=== PATIENT | female | born 1950 | race Two or more races ===

== ENCOUNTER 2024-11-10 14:58 | Emergency (ER) | payer MEDICARE, SELFPAY ==
[2024-11-10 15:00] VITALS: BMI 27.6
[2024-11-10 15:12] VITALS: BP 112/76; PULSE 81; RESP 18; TEMP 36.7; O2SAT 96
--- NOTE | 2024-11-10 15:24 | PD.EDUPEX ---
Upper Extremity Injury RME/HPI General Chief Complaint: Extremity Injury, Upper Stated Complaint: RT ARM PAIN [id number] Time Seen by Provider: 11/10/24 15:14 Source: patient Arrival date/time: 11/10/24 14:58 74-year-old female with no known medical history presents to the emergency room with a chief complaint of right shoulder pain x 1 month Mode of arrival: ambulatory Limitations: no limitations Related Data Previous Rx's ?Medication ?Instructions ?Recorded hydrocodone 5 mg-acetaminophen 325 1 tab PO BID PRN pain #6 tabs 11/10/24 mg tablet hydrocodone 5 mg-acetaminophen 325 1 tab PO BID PRN pain #6 tabs 11/10/24 mg tablet Allergies Allergy/AdvReac Type Severity Reaction Status Date / Time aspirin Allergy RASH Verified 11/10/24 15:00 Review of Systems Review of Systems Systems Reviewed: All systems reviewed, normal except as documented Constitutional Constitutional: Reports system reviewed and no additional complaints, except as documented, Denies fatigue, Denies fever(s), Denies headache(s) and Denies weakness Eyes Eyes: Reports system reviewed and no additional complaints, except as documented, Denies blurry vision and Denies change in vision ENT Ears, Nose, Mouth, and Throat: Reports system reviewed and no additional complaints, except as documented, Denies otalgia, Denies headache(s), Denies nasal congestion, Denies throat swelling and Denies vertigo Cardiovascular Cardiovascular: Reports system reviewed and no additional complaints, except as documented, Denies chest pain, Denies dyspnea and Denies dyspnea on exertion Respiratory Respiratory: Reports system reviewed and no additional complaints, except as documented, Denies chest congestion, Denies cough, Denies dyspnea, Denies dyspnea on exertion and Denies wheezing Gastrointestinal Gastrointestinal: Reports system reviewed and no additional complaints, except as documented, Denies abdominal pain, Denies cramping, Denies nausea and Denies vomiting Genitourinary Genitourinary: Reports system reviewed and no additional complaints, except as documented Musculoskeletal Musculoskeletal: Reports system reviewed and no additional complaints, except as documented, Reports arthralgias, Denies back pain, Reports joint swelling and Reports limited range of motion Integumentary/Breasts Skin/Breast: Reports system reviewed and no additional complaints, except as documented and Denies wounds Neurologic Neurologic: Reports system reviewed and no additional complaints, except as documented, Denies confusion, Denies headache(s), Denies lack of coordination, Denies vertigo and Denies weakness Psychiatric Psychiatric: Reports system reviewed and no additional complaints, except as documented, Denies anxiety, Denies confusion, Denies depression, Denies paranoia, Denies suicidal ideation and Denies tactile hallucinations Endocrine Endocrine: Reports system reviewed and no additional complaints, except as documented and Denies fatigue Hematologic/Lymphatic Hematologic/Lymphatic: Reports system reviewed and no additional complaints, except as documented and Denies lymphadenopathy Allergic/Immunologic Allergic/Immunologic: Reports system reviewed and no additional complaints, except as documented, Denies throat swelling, Denies urticaria and Denies wheezing Past Medical History Social History SMOKING STATUS: Never smoker ED Exam General Limitations: Present no limitations General appearance: Present alert and in no apparent distress Head Head exam: Present atraumatic Eye Eye exam: Present normal appearance, PERRL and EOMI ENT ENT exam: Present normal exam, normal oropharynx and mucous membranes moist Neck Neck exam: Present normal inspection, full ROM and trachea midline Chest Chest inspection: Present normal inspection and symmetric chest wall rise Respiratory Respiratory exam: Present normal lung sounds bilaterally Cardiovascular Cardiovascular exam: Present regular rate, normal rhythm and normal heart sounds Abdominal Exam Abdominal exam: Present soft and normal bowel sounds Extremities Exam Extremities exam: Present normal inspection and full ROM Expanded Upper Extremity Exam Shoulder exam: Present tenderness, swelling and tenderness over AC joint; Absent full ROM Back Exam Back exam: Present normal inspection and full ROM Neurological Exam Neurological exam: Present alert, oriented X3 and CN II-XII intact Psychiatric Psychiatric exam: Present normal affect and normal mood Skin Skin exam: Present warm, dry, intact and normal color Course Quality Measures none Orders Category Date Time Status Splint / Immobilizer STAT Care 11/10/24 15:22 Completed Ketorolac Inj [Toradol Inj] Med 11/10/24 15:22 Discontinued 30 mg IM X1 ONE Vital Signs Vital signs: Vital Signs Temperature 98.1 F 11/10/24 15:12 Pulse Rate 81 11/10/24 15:12 Respiratory Rate 18 11/10/24 15:12 Blood Pressure 112/76 11/10/24 15:12 Pulse Oximetry (%) 96 11/10/24 15:12 Oxygen Delivery Method Room Air 11/10/24 15:12 O2 saturation 96% within normal limits Extremity Injury MDM Narrative MDM Narrative:: 74-year-old female with no known medical history presents to the emergency room with a chief complaint of right shoulder pain x 1 month Patient is hemodynamically stable and in no apparent distress Physical examination shows a tender shoulder with tenderness to the AC joint with palpation. The patient has a very limited range of motion. Patient states she has been seen in an emergency room and x-rays were negative for any fracture or dislocation Patient states she was told she has an injury to her ligaments and has a scheduled MRI. Pain medication was given to the patient Patient was discharged and educated to follow-up with primary care provider in the next 24 to 48 hours and return to the emergency room for any evidence of worsening signs or symptoms Patient data External records reviewed:: [facility] previous records Clinical information provided by:: patient Social determinants that could affect healthcare access:: none Patient has the following chronic illnesses:: No chronic illness How is presenting disease/condition affected by chronic disease/condition?: no chronic disease Evaluation data The following diagnostics were reviewed and interpreted by me:: lab results and radiology exam(s) Lab and/or radiology exams considered but not ordered:: Labs and radiology exams considered and ordered Interpretation Summary: N/A Medications / Prescriptions Medications or Prescriptions considered but not ordered:: Medication given Medication administrations:: Medication Administration History Discontinued Medications Ketorolac Tromethamine (Ketorolac Inj 60 Mg/2 Ml Vial) 30 mg IM X1 ONE Stop: 11/10/24 15:23 Last Admin: 11/10/24 15:31 Dose: 30 mg Documented By: EF Medication given Consultations Consultation(s) initiated? (list below): No Diagnosis Upper Extremity Injury Differential Diagnosis: dislocation of shoulder and other (Right shoulder sprain) Most likely diagnosis given after review of the tests above:: Right shoulder sprain Admission Indicated Admission indicated?: not indicated Admission Request Was there a request for admission?: No Disposition Plan Disposition Plan: Discharge Discharge Attestation Discharge Attestation: The patient and all family members were given an opportunity to ask questions and understood the discharge instructions. Discharge instructions specifically effects, indications for sooner follow up or return to the emergency department, and the expected course of current diagnosis. Patient condition: Stable Discharge Plan Plan Patient Disposition: HOME (Self Care) Discharge Disposition comment: Stable Prescriptions/Referrals Prescriptions/Med Rec: New hydrocodone-acetaminophen 5-325 mg tablet 1 tab PO BID MDD 10mg PRN (Reason: pain) Qty: 6 0RF hydrocodone-acetaminophen 5-325 mg tablet 1 tab PO BID MDD 10mg PRN (Reason: pain) Qty: 6 0RF Problem List Clinical Impression: Shoulder sprain Patient/Caregiver Discharge Instructions Education Materials: ED Shoulder Sprain, ED Muscle Strain, Extremity Additional Instructions: Please follow-up with your primary care provider in the next 24 to 48 hours You will need to have your outpatient MRI completed to assess where your shoulder damage is located Pain medication was sent to your pharmacy For any evidence of worsening signs or symptoms return to the emergency room immediately Print Language: Tamazight Stand Alone Forms: Annetta Award Info., Patient Portal Info Letter PA/CORPORATE TRAVEL COUNSELOR Supervising Physician PA/CORPORATE TRAVEL COUNSELOR Supervising Physician: Dr. Aragon
[2024-11-10] MEDS: KETOROLAC INJ 60 MG/2 ML VIAL 30 MG IM (15:31)
== END 2024-11-10 15:56 | disposition home or self-care (01) ==
PROVIDERS: Emergency Provider Family Medicine
DX: S43.401A Unspecified sprain of right shoulder joint, initial encounter (principal); X58.XXXA Exposure to other specified factors, initial encounter
CPT/HCPCS: 96372; 99283; J1885

== ENCOUNTER → 2025-01-07 | Outpatient (CLI) | payer MEDICARE, SELFPAY ==
--- NOTE | 2025-01-07 13:30 | XR_ITS ---
MRI shoulder, right, without contrast. Date and time: January 07, 2025 1504 hours INDICATIONS: Right shoulder pain beginning 4 months ago Technique: Multiple axial, sagittal and coronal sections of the shoulder have been obtained. Siemens high-resolution 1.5 Nadiya MRI scanner is utilized. Axial fat-suppressed sections, TR 2350, TE 18 T2-weighted coronal fat-saturated images, TR 3500, TE 7100 T1-weighted coronal images, TR 500, TE 15 T2-weighted sagittal fat-saturated images, TR 3500, TE 57 T1-weighted sagittal sections, TR 504, TE 13. Findings: Supraspinatus tendon insertion is intact. Infraspinatus tendon insertion is intact. Subscapularis insertion is intact. Subscapularis bursa is not seen. Long head of the biceps is in the bicipital groove. No definite tear of the biceps superior labral anchor is seen. Retraction of the musculotendinous junction of the rotator cuff is not seen . Tendinosis pattern is moderate. Distance between the acromium and humeral head is 7.5 mm Atrophy of the supraspinatus muscle is severe. Atrophy of the infraspinatus muscle is moderate. Sagittal sections demonstrate a horizontal acromion. Acromioclavicular joint demonstrates moderate osteoarthritis. Osacromiale is not identified. Labral margins intact. Bony glenoid fossa on the sagittal sections does not demonstrate osseous defect. Occult fracture or area of avascular necrosis is not seen. Acromioclavicular joint separation is not visible. Defect in the posterolateral margin of the humeral head is not seen Impression: Rotator cuff and labral margins intact
== END | disposition home or self-care (01) ==
PROVIDERS: PCP Family Medicine; Referring Provider Family Medicine; Visit Provider Family Medicine
DX: M25.511 Pain in right shoulder (principal)
CPT/HCPCS: 73221

== ENCOUNTER 2025-03-10 02:43 | Emergency (ER) | payer MEDICARE, MEDICAID, SELFPAY ==
[2025-03-10 02:45] VITALS: BMI 28.8
--- NOTE | 2025-03-10 02:56 | EDNOTE_ITS ---
Upper Extremity Injury RME/HPI General Chief Complaint: Extremity Problem,Nontraumatic Stated Complaint: UPPER EXTRIMITY PAIN Time Seen by Provider: 03/10/25 02:57 Arrival date/time: 03/10/25 02:43 RME / HPI RME / HPI narrative: See [facility] for Dr. Curran's HPI Documentation. Related Data Previous Rx's ?Medication ?Instructions ?Recorded hydrocodone 5 mg-acetaminophen 325 1 tab PO BID PRN pa in #6 tabs 11/10/24 mg tablet hydrocodone 5 mg-acetaminophen 325 1 tab PO BID PRN pa in #6 tabs 11/10/24 mg tablet acetaminophen 300 mg-codeine 30 mg 2 tab PO Q8H PRN pa in #20 tabs 03/10/25 tablet lidocaine 5 % topical patch 2 patch topical QDAY PRN p ain #30 03/10/25 (Lidoderm) ea Allergies Allergy/AdvReac Type Severity Reaction Status Date / Time aspirin Allergy RASH Verified 11/10/24 15:00 Review of Systems Review of Systems Systems Reviewed: All systems reviewed, normal except as documented Past Medical History Social History SMOKING STATUS: Never smoker ED Exam Narrative Physical exam: See [facility] for Dr. Curran's Physical Exam Documentation. Course Quality Measures none Orders Category Date Time Status EKG (ED ONLY) *Do not use* NOW Care 03/10/25 03:00 Completed Miscellaneous Nursing Order NOW Care 03/10/25 05:12 Completed Miscellaneous Nursing Order NOW Care 03/10/25 05:39 Completed Saline [Insert IV] NOW Care 03/10/25 02:58 Completed Straight [In and Out Catheter] X1 Care 03/10/25 02:[address] cervical spine wo con Stat Exams 03/10/25 03:47 Completed EKG (ED Only) Stat Exams 03/10/25 03:00 Draft XR chest 1V portable Stat Exams 03/10/25 03:00 Completed XR shoulder BI min 2V Stat Exams 03/10/25 03:00 Completed XR wrist comp RT min 3V Stat Exams 03/10/25 03:00 Completed Bilirubin,Direct Stat Lab 03/10/25 03:11 Completed CBC Stat Lab 03/10/25 03:11 Completed CK [Creatine Kinase] Stat Lab 03/10/25 03:11 Completed CMP [Comprehensive Metabolic Panel] Stat Lab 03/10/25 03:11 Completed CRP [C-Reactive Protein] Stat Lab 03/10/25 03:11 Completed ESR [Sed Rate (ESR)] Stat Lab 03/10/25 03:11 Completed Magnesium Stat Lab 03/10/25 03:11 Completed Procalcitonin Stat Lab 03/10/25 03:11 Completed TSH [Thyroid Stimulating Hormone] Stat Lab 03/10/25 03:11 Completed Troponin I Stat Lab 03/10/25 03:11 Completed UA, C/S IF [Urinalysis, C/S if Indicated] Stat Lab 03/10/25 03:32 Completed Uric Acid Stat Lab 03/10/25 03:11 Completed Ketorolac Inj [Toradol Inj] Med 03/10/25 02:58 Discontinued 15 mg IVP X1 ONE Magnesium Sulfate 1 gm Ivpb [Magnesium Sulfate Ivpb] Med 03/10/25 04:33 Discontinued 1 gm in 100 ml IV X1 MethylPREDNISolone.* [SoluMEDROL Inj] Med 03/10/25 02:58 Discontinued 125 mg IVP X1 ONE Morphine* Inj Med 03/10/25 05:12 Discontinued 4 mg IV X1 ONE Ondansetron Inj [Zofran Inj] Med 03/10/25 02:58 Discontinued 4 mg IVP X1 ONE Sodium Chloride 0.9% 1000 ml [Ns] 1,000 ml Med 03/10/25 02:58 Discontinued IV 999 mls/hr Vital Signs Vital signs: Vital Signs Temperature 97.6 F 03/10/25 02:59 Pulse Rate 86 03/10/25 02:59 Respiratory Rate 18 03/10/25 02:59 Blood Pressure 131/82 H 03/10/25 02:59 Pulse Oximetry (%) 95 03/10/25 02:59 Oxygen Delivery Method Room Air 03/10/25 02:59 Extremity Injury MDM Narrative MDM Narrative:: This section includes all my notes and documentations, including HPI, PE, and ED course. Rod Curran MD HPI: 74 y/o female presents with BL shoulder pain x 6 months and right wrist pain and swelling x 3 weeks, worse few days ago. Also reports intermittent right finger numbness x 1 month. Denies injury. No chest pain. No other complaints. ROS: All negative except as documented in HPI. Physical Exam: General: Alert and oriented. In severe pain. Eyes: Conjunctivae and lids clear. EOMI. PERRL. ENT: No nasal congestion. Neck: Supple. No tenderness. Heart: RRR. Lungs: No respiratory distress. Good air movement. No rhonchi, wheezing, rales. Chest: No tenderness. Abdomen: Soft and nontender. Skin: Warm and dry. Neuro: Alert and oriented X 3. Cranial Nerves II-XII grossly intact. No peripheral motor deficits. Musculoskeletal: Remarkable for bilateral shoulder tenderness and right wrist tenderness. All other other major joints and bones are not tender with no limited ROM. I reviewed all diagnostic test results: My interpretation of the EKG is: Sinus rhythm (78 bpm) with nonspecific ST-T changes. My interpretation of the Chest x-ray is: NAD. My interpretation of the BL Shoulder x-ray is: No fracture. My interpretation of the Right Wrist x-ray is: No fracture. My review of the cervical spine CT report is no acute findings. Blood tests and urine tests remarkable for Mg 1.5. At this point, diagnoses include: Right Wrist Pain Bilateral shoulder pain (R > L) Hypomagnesemia Treatment here included: IV fluid Toradol 15 mg IV SoluMedrol 125 mg IV Zofran 4 mg IV Morphine 4 mg IV MgSO4 1 gram IV She felt much better. Recommended more outpatient workup. Based on my best medical judgment, made decision no further evaluation or treatment indicated at this time. Patient understands and agrees to the discharge instructions customized and printed, see below. Discharge Instructions from Dr. Curran printed for you: 1. Unfortunately, we did not find the cause of your shoulder pain and right wrist pain/swelling. 2. Until cleared by a doctor taking care of you, where the right wrist splint and arm sling. 3. Elevate your right wrist above your heart level is much as possible. Placing on your head is a good method. 4. Tylenol with codeine and lidocaine patches as needed for pain. 5. To find the cause/treatment of your pain, you need to see a private doctor outside the ER for further care and investigation not available here in the ER. Including MRI imaging studies, nerve conduction studies, specialized blood tests, and referrals to see specialists. See a private doctor this week. Ask to review all test results and official radiology reports, to make sure you receive all necessary follow-ups and monitoring. 6. Seek immediate medical care with intolerable pain, if you can't move your fingers, the fingers turn cold and blue, or with any concerns. Rod Curran MD Patient data External records reviewed:: [facility] previous records (Reviewed prior ED records from 11/10/24 . Patient was seen for Shoulder sprain.) Clinical information provided by:: patient Social determinants that could affect healthcare access:: none Patient has the following chronic illnesses:: None reported How is presenting disease/condition affected by chronic disease/condition?: no chronic disease Evaluation data The following diagnostics were reviewed and interpreted by me:: EKG tracing(s) (My interpretation of the EKG is: Sinus rhythm (78 bpm) with nonspecific ST-T changes. Rod Curran MD) Lab and/or radiology exams considered but not ordered:: None Interpretation Summary: I reviewed all diagnostic test results: My interpretation of the EKG is: Sinus rhythm (78 bpm) with nonspecific ST-T changes. My interpretation of the Chest x-ray is: NAD. My interpretation of the BL Shoulder x-ray is: No fracture. My interpretation of the Right Wrist x-ray is: No fracture. My review of the cervical spine CT report is no acute findings. Blood tests and urine tests remarkable for Mg 1.5. Medications / Prescriptions Medications or Prescriptions considered but not ordered:: None Medication administrations:: Medication Administration History Discontinued Medications Sodium Chloride (Ns) 1,000 mls @ 999 mls/hr IV .Q1H1M ONE Stop: 03/10/25 03:58 Last Infusion: 03/10/25 04:41 Dose: Infused Documented By: Admin: 03/10/25 03:34 Dose: 999 mls/hr Documented By: SANDRA Magnesium Sulfate/Dextrose (Magnesium Sulfate Ivpb) 1 gm in 100 mls @ 100 mls/h r IV X1 ONE Stop: 03/10/25 05:32 Last Infusion: 03/10/25 06:06 Dose: Infused Documented By: Admin: 03/10/25 05:06 Dose: 100 mls/hr Documented By: ABILIO Ketorolac Tromethamine (Ketorolac Inj 30 Mg/Ml Vial) 15 mg IVP X1 ONE Stop: 03/10/25 02:59 Last Admin: 03/10/25 03:34 Dose: 15 mg Documented By: SANDRA Methylprednisolone Sodium Succinate (Methylprednisolone Sod Succ 62.5 Mg/Ml 2ml Vial) 125 mg IVP X1 ONE Stop: 03/10/25 02:59 Last Admin: 03/10/25 03:34 Dose: 125 mg Documented By: SANDRA Morphine Sulfate (Morphine Sulf Inj 4 Mg/Ml Vial) 4 mg IV X1 ONE Stop: 03/10/25 05:13 Last Admin: 03/10/25 05:22 Dose: 4 mg Documented By: ABILIO Ondansetron HCl (Ondansetron Inj 2 Mg/Ml Inj 2 Ml) 4 mg IVP X1 ONE; Protocol Stop: 03/10/25 02:59 Last Admin: 03/10/25 03:34 Dose: 4 mg Documented By: SANDRA Treatment here included: IV fluid Toradol 15 mg IV SoluMedrol 125 mg IV Zofran 4 mg IV Morphine 4 mg IV MgSO4 1 gram IV Consultations Consultation(s) initiated? (list below): No Diagnosis Upper Extremity Injury Differential Diagnosis: sprain and strain of wrist, dislocation of shoulder, fracture of humerus and fracture of clavicle Most likely diagnosis given after review of the tests above:: At this point, diagnoses include: Right Wrist Pain Bilateral shoulder pain (R > L) Hypomagnesemia Admission Indicated Admission indicated?: not indicated Explain why admission is indicated or not indicated:: With significant improvement and no condition needing emergent intervention, there was no indication for admission. Admission Request Was there a request for admission?: No Disposition Plan Disposition Plan: Discharge Discharge Attestation Discharge Attestation: The patient and all family members were given an opportunity to ask questions and understood the discharge instructions. Discharge instructions specifically effects, indications for sooner follow up or return to the emergency department, and the expected course of current diagnosis. Patient condition: Stable Discharge Plan Plan Patient Disposition: HOME (Self Care) Prescriptions/Referrals Prescriptions/Med Rec: New acetaminophen-codeine 300-30 mg tablet 2 tab PO Q8H MDD 6 PRN (Reason: pain) Qty: 20 0RF lidocaine [Lidoderm] 5 % adhesive patch,medicated 2 patch topical QDAY PRN (Reason: pain) Qty: 30 0RF Rx Instructions: leave on most painful area for up to 12 hrs No Action hydrocodone-acetaminophen 5-325 mg tablet 1 tab PO BID MDD 10mg PRN (Reason: pain) Qty: 6 0RF hydrocodone-acetaminophen 5-325 mg tablet 1 tab PO BID MDD 10mg PRN (Reason: pain) Qty: 6 0RF Problem List Clinical Impression: Right wrist pain, Right shoulder pain Patient/Caregiver Discharge Instructions Discharge Activity: activity as tolerated Education Materials: ED Carpal Tunnel Syndrome, ED Shoulder Sprain Additional Instructions: Discharge Instructions from Dr. Curran printed for you: 1. Unfortunately, we did not find the cause of your shoulder pain and right wrist pain/swelling. 2. Until cleared by a doctor taking care of you, where the right wrist splint and arm sling. 3. Elevate your right wrist above your heart level is much as possible. Placing on your head is a good method. 4. Tylenol with codeine and lidocaine patches as needed for pain. 5. To find the cause/treatment of your pain, you need to see a private doctor outside the ER for further care and investigation not available here in the ER. Including MRI imaging studies, nerve conduction studies, specialized blood tests, and referrals to see specialists. See a private doctor this week. Ask to review all test results and official radiology reports, to make sure you receive all necessary follow-ups and monitoring. 6. Seek immediate medical care with intolerable pain, if you can't move your fingers, the fingers turn cold and blue, or with any concerns. Instrucciones de kathleen del Dr. Curran, impresas para usted: 1. Lamentablemente, no hemos encontrado la causa de lomeli dolor de hombro ni del dolor/hinchaz?n de la mu?eca derecha. 2. Hasta que el m?dico que lo atiende le d? el kathleen, donde se colocar? la f?catherine para la mu?eca derecha y el cabestrillo. 3. Eleve la mu?eca derecha por encima del nivel del coraz?n lo m?ximo posible. Colocarla sobre la crow es un buen m?todo. 4. Parches de Tylenol con code?na y lidoca?na seg?n sea necesario para el dolor. 5. Para determinar la causa/tratamiento de lomeli dolor, debe consultar a un m?dico privado fuera de urgencias para recibir atenci?n e investigaciones adicionales que no est?n disponibles aqu? en urgencias. Incluye estudios de resonancia magn?tip, estudios de conducci?n nerviosa, an?lisis de alley especializados y derivaciones a especialistas. Consulte a un m?dico privado esta semana. Solicite la revisi?n de todos los resultados de las pruebas y los informes radiol?gicos oficiales para asegurarse de recibir todos los seguimientos y la monitorizaci?n necesarios. 6. Busque atenci?n m?dica inmediata si tiene un dolor intolerable, no puede asbestos remover los dedos, estos se ponen fr?os y azules o si tiene alguna inquietud. Print Language: Greenlandic Stand Alone Forms: Annetta Award Info., Patient Portal Info Letter
[2025-03-10 02:59] VITALS: BP 131/82; PULSE 86; RESP 18; TEMP 36.4; O2SAT 95
--- NOTE | 2025-03-10 03:00 | EKG_ITS ---
[facility] Test Date: 2025-03-10 Pat Name: SUSANNE RODRÍGUEZTERODepartment: Room: - Gender: Female Clerk Supervisor: : [id number] Requested By: Rod Ferrari Order Number: [id number] Reading MD: Rod Ferrari Measurements Intervals [place] Rate: 78 P: 43 PA: 145 QRS: 15 QRSD: 89 T: 42 QT: 360 QTc: 412 Interpretive Statements SINUS RHYTHM LOW QRS VOLTAGE IN PRECORDIAL LEADS [QRS DEFLECTION < 1.0 mV IN CHEST LEADS] No previous ECG available for comparison /store/S0/[id number].pdf
--- NOTE | 2025-03-10 03:00 | XR_ITS ---
Examination: Wrist, right 3 views Technique: Wrist AP, oblique, lateral 3 views Date and time of exam: March 10, 2025, 1507 hours INDICATIONS: Wrist pain and numbness 3 weeks. FINDINGS: Moderate osteopenia. No fracture or dislocation. Mild osteoarthritis radiocarpal and first carpometacarpal joints IMPRESSION: Osteoarthritis as above
--- NOTE | 2025-03-10 03:00 | XR_ITS ---
EXAMINATION: PA chest single view TECHNIQUE: Upright PA chest single view Date and time: March 10, 2025, 0313 hours INDICATIONS: Shortness of breath today. FINDINGS: Normal heart size. Lungs are clear. The osseous structures are intact IMPRESSION: No active disease.
--- NOTE | 2025-03-10 03:00 | XR_ITS ---
EXAMINATION: Bilateral shoulders 6 views TECHNIQUE: AP internal rotation and AP external rotation and Y view right and left shoulders total 6 views March 10, 2025, 4 hours INDICATIONS: Bilateral shoulder pain beginning 3 weeks ago. FINDINGS: Bilateral moderate osteoarthritis glenohumeral joints Bilateral soft tissue shoulder calcific tendinitis No fractures or shoulder dislocations IMPRESSION: Bilateral moderate osteoarthritis glenohumeral joints Bilateral soft tissue shoulder calcific tendinitis
[2025-03-10 03:18] LABS: Basophils # (Auto) 0.1 Thou/mm3 (0.0-0.2); Basophils % (Auto) 1 % (0-2.5); Eosinophils # (Auto) 0.1 Thou/mm3 (0.0-0.5); Eosinophils % (Auto) 1 % (0-10); Hematocrit 40.7 % (36.0-46.0); Hemoglobin 13.7 g/dL (12.0-16.0); Immature Granulocytes Auto 0.03 Thou/mm3 (0.00-0.00); Lymphocytes # (Auto) 2.3 Thou/mm3 (1.0-4.8); Lymphocytes % (Auto) 31 % (10-50); Mean Corpuscular HGB Conc 33.7 g/dl (31.0-37.0); Mean Corpuscular Hemoglobin 30.0 pg (25.0-35.0); Mean Corpuscular Volume 89 fL (80-100); Monocytes # (Auto) 0.6 Thou/mm3 (0.0-0.8); Monocytes % (Auto) 8 % (0-12); Neutrophils # (Auto) 4.4 Thou/mm3 (1.8-7.7); Neutrophils % (Auto) 59 % (37-80); Nucleated Red Blood Cell # 0.00 Thou/mm3 (0.00-0.00); Nucleated Red Blood Cell % 0 /100 WBC (0); Platelet Count 217 Thou/mm3 (140-440); RDW Standard Deviation 44.4 fL (36.4-46.3); Red Blood Count 4.57 Miln/mm3 (4.00-5.20); White Blood Count 7.5 Thou/mm3 (3.6-11.0)
[2025-03-10] MEDS: ONDANSETRON INJ 2 MG/ML INJ 2 ML 4 MG IVP (03:34)
[2025-03-10] MEDS: SODIUM CHLORIDE 0.9% 1000 ML 1,000 ML 999 ML IV (03:34)
[2025-03-10] MEDS: KETOROLAC INJ 30 MG/ML VIAL 15 MG IVP (03:34)
[2025-03-10] MEDS: MethylPREDNISolone SOD SUCC 62.5 MG/ML 2ML VIAL 125 MG IVP (03:34)
[2025-03-10 03:39] LABS: Sed Rate (ESR) 26 mm/hr (0-30)
--- NOTE | 2025-03-10 03:47 | XR_ITS ---
Examination: CT cervical spine without contrast 2-D sagittal reconstructions 2-D coronal reconstructions 3-D reconstructions. Exam date and time: March 10, 2025, 0444 hours INDICATIONS: Neck pain radiating to the arms 3 weeks CTDI:vol (mGy) 15.5 DLP: (mGycm) 278 Technique: Multiple 2 mm axial sections of the cervical spine have been obtained. The coronal and sagittal reconstructions have been obtained. 3-D reconstructions have been obtained. Low dose protocols were performed. One or more of the following dose reduction techniques were used; automated exposure control, adjustment of the mA and/or KV according to patient size, use of iterative reconstruction technique. Findings: Axial sections demonstrate intact base of the skull. C1 exhibit satisfactory relationship to the odontoid. No acute cervical vertebral body fracture seen. Alignment posterior spinous processes satisfactory. Cervical fusion C5-C7 with anatomic alignment Impression: No acute cervical fracture. As clinically warranted, MRI cervical spine without contrast follow-up would best assess for soft tissue acquired spinal stenosis
[2025-03-10 04:22] LABS: Alanine Aminotransferase 18 U/L (10-49); Albumin, Serum 4.4 gm/dL (3.4-4.8); Albumin/Globulin Ratio 1.6 (1.2-2.2); Alkaline Phosphatase 85 U/L (46-116); Anion Gap 11 (7-16); Aspartate Amino Transferase 18 U/L (0-34); BUN/Creatinine Ratio 20 Ratio (12-20); Bilirubin,Direct 0.2 mg/dL (0.0-0.3); Bilirubin,Total 0.6 mg/dL (0.3-1.2); Blood Urea Nitrogen 18 mg/dL (9-23); C-Reactive Protein < 0.5 mg/dL (0.0-0.9); Calcium 9.7 mg/dL (8.3-10.6); Calcium (Corrected) 9.7 mg/dL (8.5-10.1); Carbon Dioxide 23.9 mMol/L (20.0-31.0); Chloride 108 mMol/L (98-107); Creatine Kinase 39 U/L (34-171); Creatinine (Component) 0.9 mg/dL (0.6-1.3); Estimated Creatinine Clearance 55.6 mL/min (>60); Globulin 2.8 gm/dL (2.3-3.5); Glucose 125 mg/dL (74-106); Magnesium 1.5 mg/dL (1.6-2.6); Osmolality,Calculated 287 (275-295); Potassium 3.5 mMol/L (3.4-5.1); Procalcitonin 0.09 ng/ml (0.0-0.49); Sodium 143 mMol/L (136-145); Thyroid Stimulating Hormone 4.81 uIU/mL (0.55-4.78); Total Protein 7.2 gm/dL (5.7-8.2); Troponin I < 0.002 ng/mL (0.0-0.045); Uric Acid 2.8 mg/dL (3.1-7.8); eGFR > 60 See Note
[2025-03-10 04:47] LABS: Collection Type, Urine Clean Catch
[2025-03-10 05:00] LABS: Bacteria,Urine Rare; Bilirubin,Urine Negative (Negative); Blood,Urine Negative (Negative); Clarity,Urine Clear (Clear/Hazy); Color,Urine Yellow (Lt Yel-Yel); Culture Indicated,Urine Not Indicated; Glucose, Urine 4+ (Negative); Ketones,Urine Negative (Negative); Leukocyte Esterase,Urine Negative (Negative); Nitrite,Urine Negative (Negative); PH,Urine 6.0 (5.0-7.0); Protein,Urine Trace (Neg - Trace); RBC,Urine 5 /hpf (0-3); Specific Gravity,Urine 1.036 (1.001-1.035); Squamous Epithelial Cell,Urine 3 /hpf (0-5); Urobilinogen,Urine Negative mg/dL (0.0-1.0); WBC,Urine < 1 /hpf (0-5)
--- NOTE | 2025-03-10 05:01 | PRELIM_ITS ---
CT scan of the cervical spine without intravenous contrast (axial sections with sagittal and coronal reformats). March 10, 2025 0441 hours Clinical History: Radicular pain Comparison: None Findings: There is no fracture, traumatic subluxation or other acute osseous abnormality of the cervical spine. There is straightening of the cervical spine. There is degenerative change at the atlantodens articulation. Multilevel spondylosis also noted at other levels with multilevel foraminal stenosis. There is prior anterior cervical discectomy and interbody fusion from the C5 level to the C7 level. There is satisfactory position of spinal hardware. There is solid arthrodesis at C5-6 and C6-C7. The prevertebral soft tissues are unremarkable. Bilateral parotid hypertrophy suggested which may be related to obesity. Impression: No acute osseous abnormality of the cervical spine. Degenerative and postoperative change. Report Electronically Signed By: Sanjay Farooq 03/10/2025 5:00:16 AM [EST]
[2025-03-10 05:09] VITALS: BP 136/93; PULSE 70; RESP 17; TEMP 36.7; O2SAT 95
[2025-03-10] MEDS: MORPHINE SULF INJ 4 MG/ML VIAL IV (05:22)
[2025-03-10 06:06] VITALS: BP 133/76; PULSE 86; RESP 16; TEMP 36.8; O2SAT 98
== END 2025-03-10 06:07 | disposition home or self-care (01) ==
PROVIDERS: Emergency Provider Emergency Medicine; PCP Family Medicine
DX: M25.511 Pain in right shoulder (principal); M25.512 Pain in left shoulder; M25.531 Pain in right wrist; M54.2 Cervicalgia; R06.02 Shortness of breath; R94.31 Abnormal electrocardiogram [ECG] [EKG]
CPT/HCPCS: 36415; 71045; 72125; 73030; 73110; 80053; 81001; 82248; 82550; 83735; 84145; 84443; 84484; 84550; 85025; 85652; 86140; 93005; 96361; 96365; 96375; 99284; J1885; J2270; J2405; J2919; J3475; J7030